=== PATIENT | female | born 1980 | race Caucasian/White ===

== ENCOUNTER 2017-07-15 13:21 | Emergency (ER) | payer OTHER ==
[2017-07-15 13:29] VITALS: BP 121/64
--- NOTE | 2017-07-15 13:50 | UC ---
Throat Pain/Nasal Farhad HPI - HPI Summary HPI Summary: ONSET OF ST AND BILATERAL EAR PAIN LAST NIGHT. NO FEVER, COUGH OR CONGESTION. NO NAUSEA. DAUGHTER WENT TO [facility] TODAY AND DX WITH STREP. - History of Current Complaint Chief Complaint: UCGeneralIllness Stated Complaint: SORE THROAT Time Seen by Provider: 07/15/17 13:38 Hx Obtained From: Patient Hx Last Menstrual Period: iud Onset/Duration: Sudden Onset, Lasting Hours, Still Present Severity: Moderate Pain Intensity: 8 Pain Scale Used: 0-10 Numeric Cough: None Associated Signs & Symptoms: Negative: Fever - Allergies/Home Medications Allergies/Adverse Reactions: Allergies Allergy/AdvReac Type Severity Reaction Status Date / Time Penicillins Allergy Intermediate Hives Verified 07/15/17 13:29 Home Medications: Home Medications NK [No Home Medications Reported] 07/15/17 [History Confirmed 07/15/17] PMH/Surg Hx/FS Hx/Imm Hx Previously Healthy: Yes - Surgical History Surgical History: None - Family History Known Family History: Negative: Hypertension, Diabetes - Social History Alcohol Use: None Substance Use Type: None Smoking Status (MU): Never Smoked Tobacco Review of Systems Constitutional: Negative ENT: Sore Throat, Ear Ache Respiratory: Negative Cardiovascular: Negative Gastrointestinal: Negative All Other Systems Reviewed And Are Negative: Yes Physical Exam Triage Information Reviewed: Yes Appearance: Well-Appearing, No Pain Distress, Well-Nourished Vital Signs: Initial Vital Signs Temp 98.4 F 07/15/17 13:25 Pulse 50 07/15/17 13:25 Resp 18 07/15/17 13:25 BP 121/64 07/15/17 13:25 Pulse Ox 100 07/15/17 13:25 Vital Signs Reviewed: Yes ENT: Positive: Hearing grossly normal, Pharynx normal, TMs normal. Negative: Tonsillar swelling, Tonsillar exudate Neck: Positive: Supple, Nontender, No Lymphadenopathy Respiratory Exam: Normal Cardiovascular Exam: Normal Abdomen Description: Positive: Soft Musculoskeletal: Positive: No Edema Neurological: Positive: Alert Psychological: Positive: Age Appropriate Behavior Skin: Negative: rashes Diagnostics - Laboratory Diagnostic Studies Completed/Ordered: RAPID STREP NEGATIVE Throat Pain/Nasal Course/Dx - Differential Dx/Diagnosis Provider Diagnoses: ACUTE PHARYNGITIS Discharge - Discharge Plan Condition: Stable Disposition: HOME Patient Education Materials: Pharyngitis (ED) Referrals: Юлия Kumar MD [Primary Care Provider] - If Needed Additional Instructions: RAPID STREP NEGATIVE. LIKELY VIRAL ETIOLOGY OF SYMPTOMS AND SHOULD RESOLVE WITH TIME. OTC MEDS NEEDED, STAY HYDRATED. SEEK FOLLOW-UP IF YOU ARE NOT IMPROVING EXPECTED.
== END 2017-07-15 14:18 | disposition home or self-care (01) ==
LOC: UCEAST 13:21
DX: J02.9 Acute pharyngitis, unspecified (principal); Z88.0 Allergy status to penicillin
CPT/HCPCS: 87651; 99211; G0463